=== PATIENT | male | born 1960 | race Caucasian/White ===

== ENCOUNTER → 2018-01-02 | Outpatient (CLI) | payer OTHER ==
[~2018-01-02] MED LIST: ADVAIR 250-501 EACH IH; ADVAIR 250/501 DISK IH; ALLEGRA180 MG PO; ASTEPRO 0.15%30 ML BOTH NARES; CELEBREX100 MG PO; FIORICET 50-321 EAC1 PO; LISINOPRIL20 MG PO; MOBIC15 MG PO; PREVACID30 MG PO; VERAPAMIL HCL120 MG PO; VIAGRA50 MG
== END | disposition home or self-care (01) ==
LOC: RES 11:00
DX: J98.4 Other disorders of lung (principal); R94.2 Abnormal results of pulmonary function studies
CPT/HCPCS: 94060; 94726; 94729

== ENCOUNTER 2018-01-20 07:17 | Day surgery (SDC) | payer BC ==
[~2018-01-20] VITALS: Ht 190.5 cm; Wt 132.9 kg
[~2018-01-20 07:17] MED LIST changes: +ADVAIR HFA120 INHAL1 IH; +COZAAR100 MG PO; +MAXALT10 MG PO; +METFORMIN HCL500 MG PO; +PROAIR HFA8.5 GM IH; +SPIRIVA18 MCG IH
[2018-01-20] MEDS ORDERED: SINGULAIR10 MG PO (08:20)
[2018-01-20 08:27] VITALS: BP 179/89
[2018-01-20 09:01] LABS: CHLORIDE 102 MEQ/L (99-109); CREATININE 1.1 MG/DL (0.6-1.3); GFR ESTIMATE (CALCULATED) > 59 mL/min/ (58.99-99999); GLUCOSE 125 mg/dL (70-99); POTASSIUM 4.3 MEQ/L (3.7-5.4); SODIUM 139 MEQ/L (136-147); UREA NITROGEN (BUN) 21 mg/dL (9-23)
[2018-01-20] MEDS ORDERED: NORCO 5/3251 TABLET PO (10:20)
[2018-01-20 10:51] VITALS: BP 122/66
[2018-01-20 12:09] VITALS: BP 147/79
== END 2018-01-20 12:20 | disposition home or self-care (01) ==
LOC: SDC 07:17
PROVIDERS: Surgery
PROC: 0WUF0JZ Supplement Abdominal Wall with Synthetic Substitute, Open Approach (ICD-10-PCS; principal; 2018-01-20)
DX: K42.9 Umbilical hernia without obstruction or gangrene (principal); Q79.59 Other congenital malformations of abdominal wall; J45.909 Unspecified asthma, uncomplicated; E11.9 Type 2 diabetes mellitus without complications; I25.10 Atherosclerotic heart disease of native coronary artery without angina pectoris; K21.0 Gastro-esophageal reflux disease with esophagitis; I10 Essential (primary) hypertension; G47.30 Sleep apnea, unspecified; M19.90 Unspecified osteoarthritis, unspecified site; Z86.010 Personal history of colon polyps; H93.19 Tinnitus, unspecified ear; Z79.84 Long term (current) use of oral hypoglycemic drugs; Z88.2 Allergy status to sulfonamides; Z88.8 Allergy status to other drugs, medicaments and biological substances; Z68.37 Body mass index [BMI] 37.0-37.9, adult
CPT/HCPCS: 80048; 82948; 93005; C1781; J0690; J2250; J3010; S0020